=== PATIENT | male | born 1955 ===

== ENCOUNTER 2022-01-14 09:55 | Outpatient (CLI) | payer OTHER | END 2022-01-14 10:15 | disposition home or self-care (01) | LOC: RAD 09:55 | PROVIDERS: ATTEND Internal Medicine Cardiovascular Disease | DX: M12.9 Arthropathy, unspecified (principal) ==

== ENCOUNTER 2022-12-16 09:40 | Outpatient (CLI) | payer OTHER | END 2022-12-16 10:00 | disposition home or self-care (01) | LOC: RAD 09:40 | DX: M54.17 Radiculopathy, lumbosacral region (principal); M16.12 Unilateral primary osteoarthritis, left hip; M17.0 Bilateral primary osteoarthritis of knee; Z96.642 Presence of left artificial hip joint ==

== ENCOUNTER → 2023-01-06 | Outpatient (CLI) | payer OTHER | END | disposition home or self-care (01) | LOC: TOM 11:33 | DX: M54.17 Radiculopathy, lumbosacral region (principal) ==

== ENCOUNTER → 2023-12-25 | Outpatient (CLI) | payer OTHER | END | disposition home or self-care (01) | LOC: SONOGRAMA 09:55 | PROVIDERS: ATTEND Urology | DX: R31.0 Gross hematuria (principal) ==